=== PATIENT | female | born 1970 | race Caucasian/White ===

== ENCOUNTER → 2018-05-01 13:17 | Outpatient (CLI) | payer OTHER, BC, SELFPAY ==
--- NOTE | 2018-05-01 13:29 | XR_ITS ---
XR knee LT 3V HISTORY: ITS.REASON: ACUTE LT KNEE PAIN ORDERING PHYSICIAN: Cecilio Freeman MD PATIENT AGE: 47 years COMPARISON: None FINDINGS: No fracture or dislocation. No lytic or blastic change. Normal mineralization. No significant arthritic changes evident. No other significant findings IMPRESSION: Negative Knee
== END ==
PROVIDERS: PCP Internal Medicine Adolescent Medicine; Visit Provider Internal Medicine Adolescent Medicine
DX: M25.562 Pain in left knee (principal)
CPT/HCPCS: 73562

== ENCOUNTER 2020-10-08 14:00 | Outpatient (RCR) | payer BC, SELFPAY ==
--- NOTE | 2020-08-18 14:46 | HMH.OTOPEV ---
OT Inpatient Evaluation Rehab OT Outpatient Eval Start: 08/18/20 14:23 Freq: Status: Active Protocol: Document 08/18/20 14:24 [email or web address] (Rec: 08/18/20 14:46 [id number] Electronically Signed By Teagan Choi OT 08/18/20 14:24 Outpatient Therapy Subjective History Subjective History Pt is a 49 year old female who reports to therapy for initial evaluation to left arm . Pt reports ~2 months ago she was walking her dog on a leash, when the dog was startled and jerked her L shoulder in extension while shoulder was in horizontal abduction. Since this accident she began having pain . Pt did go to her PCP who provided her with a HEP. Pt explains since beginning the exercises her AROM has become worse. Pt demonstrates significant decline in AROM and strength at left shoulder. Upon PROM stretching therapist observed significant stiffness in abduction, ER, and IR. Pt will continue to be seen twice a week in order to address all deficits. Chief Complaint Pain,Stiff Symptom Type Ache,Throb,Sharp,Dull Symptoms Relieved By Rest/Positioning Symptoms Aggravated By Physical Activity,Lifting Prior Functional Limitations None Current Functional Limitations Reaching,Lifting,Housework, Dressing,Sleeping,Recreation Activity Symptom Description Constant but Variable Level of pain today (0-10) 1 Pain scale - at its best (0-10) 1 Pain scale - at its worst (0-10) 10 Shoulder/Elbow Eval Shoulder Objective Measurements Shoulder ROM Left Shoulder ROM Limitations Pain Shoulder Abduction Active Range of 60 degrees Motion (degrees) Shoulder Flexion Active Range of Motion 100 degrees (degrees) Query Text: Shoulder External Rotation Active Range 30 degrees of Motion (degrees) Shoulder Internal Rotation Active Range 45 degrees of Motion (degrees) pain with active ROM shoulder exam left standard pain with passive ROM shoulder exam left standard decrease
--- NOTE | 2020-09-17 16:09 | HMH.RHREAS ---
Rehab Reassessment Rehab OP Re-assessment Start: 09/17/20 15:05 Freq: Status: Active Protocol: Document 09/17/20 15:05 EBONY (Rec: 09/17/20 16:09 EBONY [id number]) Electronically Signed By Teagan Choi OT 09/17/20 15:05 Rehab Re-assessment Subjective Subjective It was better for a few days after last time. Objective Objective Notes Pt continues to be seen twice weekly in order to engage in left shoulder exercises. Each session, pt completes AROM and AAROM exercises to L shoulder. Pt is also passively ranged in supine in flexion, abduction, er, and ir . Modalities are provided to decrease pain/inflammation. Assessment Progress Assessment Slower Than Expected Assessment Notes Pt reports since beginning therapy she is ~35% better. Pt feels after each session her L shoulder is improved, but only last for a few days before the arm becomes stiff again. Pt reports pain is more manageable, but she is still unable to move the arm normally. Therapist recommended pt go back to primary care for possible further imaging (MRI) and a refurral to ortho for an evaluation. Current AROM L shoulder Flex: 127 degrees Abd: 110 degrees ER: 65 degrees IR: 45 degrees Pt's AROM has improved slightly since initial evaluation, but continues to remain limited. Patient goals met Pt has met the following short term goals: Pt is independent with all HEP exercises with AAROM exercises Pt is able to completed L shoulder exercises for more than 30 ninutes prior to rest. Goals Not Met LTG and STG MMT/AROM/Pain Revised Goals Continue progr
== END 2020-10-08 14:05 | disposition home or self-care (01) ==
LOC: OT 14:00
PROVIDERS: Visit Provider Internal Medicine Adolescent Medicine
DX: M25.512 Pain in left shoulder (principal)
CPT/HCPCS: 97014; 97110; 97140; 97164; 97166; G0283

== ENCOUNTER 2022-08-04 08:17 | Emergency (ER) | payer BC, SELFPAY ==
[2022-08-04 08:30] VITALS: BP 125/73; PULSE 68; RESP 19; TEMP 36.6; O2SAT 99; BMI 37.1
--- NOTE | 2022-08-04 08:38 | XR_ITS ---
FINAL REPORT CLINICAL HISTORY: fall FINDINGS: Three views of the left knee reveal no evidence of fracture or dislocation. The bony alignment is normal. The joint spaces are preserved. There is no evidence of joint effusion. No localized soft tissue abnormality is seen. IMPRESSION: No acute abnormality identified. Reviewed, Interpreted and Dictated by Flavio Mancera III, MD Transcribed by Saulo Angeles Authenticated and [facility]
--- NOTE | 2022-08-04 08:38 | XR_ITS ---
FINAL REPORT CLINICAL HISTORY: fall FINDINGS: 3 views of the left foot were obtained. There is no acute fracture or dislocation. There are mild degenerative changes. There is a chronic calcification dorsal to the 1st tarsal metatarsal joint. Calcaneal spurs are present. IMPRESSION: No acute process. Reviewed, Interpreted and Dictated by lFavio Mancera III, MD Transcribed by Saulo Angeles Authenticated and [facility]
--- NOTE | 2022-08-04 08:38 | XR_ITS ---
FINAL REPORT CLINICAL HISTORY: fall FINDINGS: Two views of the left tibia-fibula demonstrate no acute fracture or dislocation. The joint spaces appear normal. The visualized bony structures are well aligned. No soft tissue abnormality is seen. IMPRESSION: No acute process. Reviewed, Interpreted and Dictated by Flavio Mancera III, MD Transcribed by Saulo Angeles Authenticated and [facility]
--- NOTE | 2022-08-04 08:38 | XR_ITS ---
FINAL REPORT CLINICAL HISTORY: fall FINDINGS: LEFT ANKLE: Three views of the left ankle were obtained. There is no acute fracture or dislocation. There are mild degenerative changes. There is a chronic calcification inferior to the medial malleolus. Calcaneal spurs are present. There is soft tissue swelling. IMPRESSION: Swelling with no acute bony abnormality. Reviewed, Interpreted and Dictated by Flavio Mancera III, MD Transcribed by Saulo Angeles Authenticated and [facility]
--- NOTE | 2022-08-04 09:09 | EXP.UTC ---
Discharge Plan Disposition Patient Disposition: Home, Self-Care Condition: Good Prescriptions Prescriptions: New cephalexin 500 mg capsule 500 mg PO Q6H 7 Days Qty: 28 0RF mupirocin 2 % ointment 1 applic topical TID Qty: 22 0RF Rx Instructions: apply to area on foot Referrals Follow up/Referrals: Cecilio Freeman MD [Primary Care Provider] - See instructions Activity Restrictions/Add. Instructions Additional Instructions/Restrictions: *Start antibiotic(s) immediately and be sure to take as ordered for the FULL length of time although you may be feeling better or start to see improvement in the next 24-48 hours *Monitor closely. Outlined redness so that you can monitor easier. Follow up immediately for new or worsening symptoms including but not limited to redness, swelling, streaking from site fever or chills. *Warm compress 15 minutes 3-4 times day *Never squeeze or pop these on your own. Seek immediate medical attention next time this occurs *Monitor Temp. Tylenol every 4 hours as needed and ibuprofen every 6 hours as needed (as long as your primary care doctor has told you that it is ok to take both. For fever, aches, pain. ER if no less that 101 despite Tylenol and ibuprofen ?Follow up with your family doctor/primary care physician in the next 48-72 hours if no improvement Return if needed Straight to ER if any life threatening symptoms Clinical Impressions Clinical Impression: Cellulitis Instructions Patient Instructions: Cellulitis Discharge ED Provider: Johanne Campbell [facility] HPI General Stated complaint: [id number] left leg pain, home accident Mode of Arrival: Ambulatory Source of Information: Patient Limitations: No Limitations Time Seen by Provider: 08/04/22 09:09 Description of Symptoms (Recalled from Triage Doc. by RN): PATIENT C/O PAIN TO LEFT FOOT AND ANKLE AFTER FALLING IN THE ATTIC ON TUESDAY HEENT Symptoms (Recalled from RN notes): No Resp Symptoms (Recalled from RN notes): No Skin Symptoms (Recalled from RN notes): No MS Symptoms (Recalled from RN notes): Yes Functional Status (Recalled from RN notes): WNL History of Present Illness Provider Complaint: Patient states that on Tuesday she was working in the attic when she stepped back and her foot and lower leg went through the duct work States that after that she went shopping and wore a pair of sandals that had straps on them and her foot started hurting States that she noticed it was looking a little red and swollen States that her thought she she may have been bitten by something also States that today she is still having redness and has an area on the top of her left foot but wanted to get it checked to make sure she didnt break anything in the fall States that also she fell awhile back and hit her knee and still having some pain and swelling in her knee at times Related Data Previous Rx's Medication Instructions Recorded cephalexin 500 mg capsule 500 mg PO Q6H 7 days #28 caps 08/04/22 mupirocin 2 % topical ointment 1 applic topical TID #22 grams 08/04/22 Allergies Allergy/AdvReac Type Severity Reaction Status Date / Time Penicillins Allergy Unknown Verified 10/19/21 14:23 poison kyle extract Allergy Rash Verified 10/19/21 14:23 Worker's Comp Is this a Worker's Comp case?: No [facility] Medical History (Updated 08/04/22 @ 09:57 by Johanne Campbell APRN) No significant past medical history Social History (Updated 08/04/22 @ 08:46 by Edith Almaguer RN) Smoking Status: Never smoker alcohol intake: never substance use type: denies use current occupational status: other Travel in the last 8 weeks: None ROS Obtained: Yes All systems reviewed & no additional complaints except as documented and Yes Systems reviewed as appropriate & no additional complaints except as documented Constitutional Constitutional: Reports system reviewed and no additional complaints, except as documented, Reports as per HPI a
[2022-08-04 09:23] VITALS: BP 125/73; PULSE 68; RESP 19; TEMP 36.6; O2SAT 99
== END 2022-08-04 10:14 | disposition home or self-care (01) ==
PROVIDERS: Emergency Provider Nurse Practitioner; PCP Internal Medicine Adolescent Medicine
DX: L03.116 Cellulitis of left lower limb (principal); W19.XXXA Unspecified fall, initial encounter
CPT/HCPCS: 73562; 73590; 73610; 73630; 99213; G0463

== ENCOUNTER 2024-03-23 09:01 | Emergency (ER) | payer BC, SELFPAY ==
[2024-03-23 09:15] VITALS: BP 145/71; PULSE 82; RESP 18; TEMP 36.5; O2SAT 96; BMI 42.2
--- NOTE | 2024-03-23 09:21 | XR_ITS ---
FINAL REPORT CLINICAL HISTORY: pain COMPARISON: None FINDINGS: Two images of the right clavicle were obtained. There is no evidence of fracture or dislocation. There is minimal acromioclavicular degenerative change. There is no soft tissue abnormality identified. IMPRESSION: No acute bony abnormality. Minimal acromioclavicular hypertrophic change. Reviewed, Interpreted and Dictated by Hair Pfeiffer MD Transcribed by Lia Mcdermott Authenticated and [facility]
--- NOTE | 2024-03-23 09:21 | XR_ITS ---
FINAL REPORT CLINICAL HISTORY: pain COMPARISON: None FINDINGS: 3 images of the right shoulder were obtained. There is no evidence of fracture or dislocation. There is a calcific or ossific density at the level of the greater trochanter, that likely represents a calcific or ossific tendinitis. IMPRESSION: No acute bony abnormality. Calcific or ossific density at the level of the greater trochanter, likely secondary to a calcific or ossific tendinitis. Reviewed, Interpreted and Dictated by Hair Pfeiffer MD Transcribed by Lia Mcdermott Authenticated and [facility]
--- NOTE | 2024-03-23 09:28 | PC.NURSE ---
Pt went to RAD
[2024-03-23] MEDS: IBUPROFEN 600 MG TABLET PO (10:54)
--- NOTE | 2024-03-23 11:05 | ED_ITS ---
Discharge Plan Disposition Patient Disposition: Home, Self-Care Condition: Good Prescriptions Prescriptions: New ibuprofen 600 mg tablet 600 mg PO Q6HP PRN (Reason: Moderate Pain) Qty: 20 0RF methylprednisolone [Medrol (Bladimir)] 4 mg tablets,dose pack See Rx Instructions .Route .COMPLEX 6 Days Qty: 21 0RF Rx Instructions: taper pack; No Action progesterone micronized 100 mg capsule 100 mg PO DAILY Patient Comments: TAKE 1 CAPSULE BY MOUTH ONCE DAILY AT BEDTIME FOR 2 WEEKS AND THEN INCREASE TO 2 CAPSULES. Referrals Follow up/Referrals: Cecilio Freeman MD [Primary Care Provider] - See instructions Activity Restrictions/Add. Instructions Additional Instructions/Restrictions: *Ibuprofen lamberto 6 hours with meal as needed for pain/inflammation Not additional anti-inflammatory like motrin, aleve, advil with the above amount of ibuprofen. You can still take Tylenol every 4 hours as needed if you need something else for pain *Ice 20 minutes every 2 hours for the first 48 hours after the initial injury followed by moist heat every 20 minutes 3-4 times a day to affected area *Keep this area active, no movement leads to more stiffness, However take it easy and avoid heavy lifting pushing or pulling *Follow up with you family doctor if no improvement for further treatment Clinical Impressions Clinical Impression: Tendonitis Stand Alone Forms Stand Alone Forms: Work/School Release Instructions Patient Instructions: DI for Tendinitis, Ibuprofen Discharge ED Provider: Johanne Campbell [facility] General Stated complaint: pain in R shoulder Mode of Arrival: Ambulatory Source of Information: Patient Limitations: No Limitations Time Seen by Provider: 03/23/24 11:05 Description of Symptoms (Recalled from Triage Doc. by RN): Pt's symptoms are she woke up with pain in right shoulder. HEENT Symptoms (Recalled from RN notes): No Resp Symptoms (Recalled from RN notes): No Skin Symptoms (Recalled from RN notes): No MS Symptoms (Recalled from RN notes): Yes Functional Status (Recalled from RN notes): n/a History of Present Illness Provider Complaint: Patient states that she didnt hurt her shoulder or anything but a couple of days ago she woke up with pain in her right shoulder that was worse when she would try to lift her arm up States if she holds her arm down it feels better States today she was still having pain so she came in to get it checked Related Data Home Medications Medication Instructions Recorded Confirmed progesterone micronized 100 mg 100 mg PO DAILY 03/23/24 03/23/24 capsule Previous Rx's Medication Instructions Recorded ibuprofen 600 mg tablet 600 mg PO Q6HP PRN Moderate Pain 03/23/24 #20 tabs methylprednisolone 4 mg tablets in See Rx Instructions .Route 03/23/24 a dose pack (Medrol (Bladimir)) .COMPLEX 6 days #21 tabs Allergies Allergy/AdvReac Type Severity Reaction Status Date / Time Penicillins Allergy Unknown Verified 10/19/21 14:23 poison kyle extract Allergy Rash Verified 10/19/21 14:23 Worker's Comp Is this a Worker's Comp case?: No [facility] Disclaimer: The information contained in this section may have been updated after the patient was seen, as this information can be updated by other users. Medical History (Updated 03/23/24 @ 11:13 by Johanne Campbell APRN) No significant past medical history Social History (Updated 08/04/22 @ 08:46 by Edith Almaguer RN) Smoking Status: Never smoker alcohol intake: never substance use type: denies use current occupational status: other Travel in the last 8 weeks: None ROS Obtained: Yes All systems reviewed & no additional complaints except as documented and Yes Systems reviewed as appropriate & no additional complaints except as documented Constitutional Constitutional: Reports system reviewed and no additional complaints, except as documented and Reports as per HPI ENT Ears, Nose, Mouth, and Throat: Reports system reviewed and no additional complaints, except as documented and Reports as per HPI Cardiovascular Cardiovascular: Reports system reviewed and no additional complaints, except as documented and Reports as per HPI Respiratory Respiratory: Reports system reviewed and no additional complaints, except as documented and Reports as per HPI Musculoskeletal Musculoskeletal: Reports system reviewed and no additional complaints, except as documented, Reports as per HPI and Reports other (Pain in right shoulder denies known injury) Physical Exam General General appearance: alert and in no apparent distress ENT ENT exam: Present mucous membranes moist Respiratory Respiratory exam: Present normal lung sounds bilaterally; Absent respiratory distress or wheezes Cardiovascular Cardiovascular exam: Present regular rate, normal rhythm and normal heart sounds Expanded Upper Extremity Exam Right: Shoulder exam: Present tenderness; Absent swelling, abrasion, ecchymosis, deformity, dislocation or erythema Arm exam: Present normal inspection Elbow exam: Present normal inspection Forearm/Wrist exam: Present normal inspection Hand exam: Present normal inspection Neurological Exam Neurological exam: Present alert, oriented X3 and normal gait Medical Decision Making [place] Inquiry Pt receiving controlled substance: No [place] was queried for this patient: No Vital Signs: 03/23/24 09:15 Temperature 97.7 F Temperature Source Oral Pulse Rate [Right Radial] 82 Respiratory Rate 18 Blood Pressure [Right Arm] 145/71 H Blood Pressure Mean [Right Arm] 95 Blood Pressure Source [Right Arm] Automatic Cuff Blood Pressure Position [Right Arm] Sitting 02 Sat by Pulse Oximetry 96 Oxygen Delivery Method Room Air Orders (Tests/Meds): ED MEDICATIONS Discontinued Medications Generic Name Dose Route Start Last Admin Trade Name Freq PRN Reason Stop Dose Admin Ibuprofen 600 mg 03/23/24 10:50 03/23/24 10:54 Ibuprofen 600 Mg Tablet PO 03/23/24 10:51 600 mg ONCE ONE Administration ORDERS Category Date Time Status Clavicle XR right [XR clavicle RT] Stat Exams 03/23/24 09:21 Taken XR shoulder RT min 2V Stat Exams 03/23/24 09:21 Taken Radiology Data #1: Image(s): Shoulder Image Reviewed: Yes I have reviewed radiologist's interpretation Calcific or ossific density at the level of the greater trochanter, likely secondary to a calcific or ossific tendonitis #2: Image(s): Clavicle Image Reviewed: Yes I have reviewed radiologist's interpretation mimimal acromioclavicular hypertrophic change
[2024-03-23 11:20] VITALS: BP 145/71; PULSE 82; RESP 18; TEMP 36.5; O2SAT 96
== END 2024-03-23 11:20 | disposition home or self-care (01) ==
PROVIDERS: Emergency Provider Nurse Practitioner; PCP Internal Medicine Adolescent Medicine
DX: M25.511 Pain in right shoulder (principal); M67.813 Other specified disorders of tendon, right shoulder
CPT/HCPCS: 73000; 73030; 99212; 99214; G0463